=== PATIENT | male | born 1995 | race Two or more races ===

== ENCOUNTER 2022-12-12 01:03 | Inpatient (IN) | payer MEDICAID, OTHER ==
[~2022-12-12] VITALS: Ht 177.8 cm; Wt 81.8 kg
[2022-12-12] MEDS ORDERED: diazePAM 5 MG TAB PO ONE (01:45)
[2022-12-12] MEDS ORDERED: LORazepam 2MG/ML-1ML VIAL IV ONE ×2 (02:00→03:15)
[2022-12-12] MEDS ORDERED: NITROGLYCERIN 0.4 MG SL TAB SL ONE (02:00)
[2022-12-12 02:03] LABS: Basophils # (auto) 0 10 ^3/uL (0-0.2); Basophils % (auto) 0.1 % (0.0-2.0); Eosinophils # (auto) 0 10 ^3/uL (0-0.8); Hematocrit 50.9 % (41.0-53.0); Hemoglobin 17.7 g/dL (13.5-17.5); Lymphocytes # (auto) 1.7 10 ^3/uL (0.4-5.4); Lymphocytes % (auto) 14.8 % (10.0-50.0); Mean Corpuscular Hemoglobin 30.6 pg (28.0-32.0); Mean Corpuscular Hgb Conc. 34.9 g/dL (32.0-36.0); Mean Corpuscular Volume 87.7 fL (80.0-100.0); Monocytes # (auto) 1.2 10 ^3/uL (0-1.3); Monocytes % (auto) 10.2 % (0.0-12.0); Neutrophils # (auto) 8.7 10 ^3/uL (1.6-8.6); Neutrophils % (auto) 74.9 % (37.0-80.0); Red Cell Distribution Width 13.1 % (11.8-14.3); White Blood Cell 11.6 10^3/uL (4.4-10.8)
[2022-12-12 02:05] VITALS: PULSE 100; RESP 13; O2SAT 96
[2022-12-12 02:16] LABS: Albumin 4.7 g/dL (3.4-5.0); Calcium 9.5 mg/dL (8.5-10.1); Potassium 3.6 mmol/L (3.5-5.1)
[2022-12-12 02:18] LABS: BUN/Creatinine Ratio 10.6 (10.0-20.0)
[2022-12-12 02:20] LABS: Bilirubin, Total 0.6 mg/dL (0.2-1.0); Total Protein 8.4 g/dL (6.4-8.2)
[2022-12-12 02:49] LABS: Amphetamine Screen, Urine NEGATIVE (NEGATIVE); Barbiturate Scree,Urine NEGATIVE (NEGATIVE); Benzodiazephine Screen, Urine NEGATIVE (NEGATIVE); Cocaine Screen, Urine POSITIVE (NEGATIVE); Opiate Scree,Urine NEGATIVE (NEGATIVE); Phencyclidine Screen, Urine NEGATIVE (NEGATIVE)
[2022-12-12 02:57] LABS: Cannabinoid Screen, Urine POSITIVE (NEGATIVE)
[2022-12-12] MEDS ORDERED: SODIUM CHLORIDE 0.9% 500 ML IV ONE (03:15)
[2022-12-12 03:16] LABS: Urine Bacteria NONE SEEN /hpf (None Seen); Urine Blood Negative /uL (Negative); Urine Clarity Clear (Clear); Urine Color Yellow (Yellow); Urine Mucus FEW (None Seen); Urine Protein, UAD Negative (Negative); Urine Specific Gravity 1.017 (1.001-1.035); Urine Urobilinogen Normal (Negative); Urine WBC 1 /hpf (0 - 3); Urine pH 5.5 (5.0-8.0)
[2022-12-12 07:45] VITALS: PULSE 63; RESP 15; O2SAT 97
[2022-12-12] MEDS ORDERED: ONDANSETRON HCL 4 MG/2 ML VIAL IV PRN (10:15)
[2022-12-12] MEDS ORDERED: NALOXONE HCL 1MG/ML 2ML SYRINGE IV ONE (10:15)
[2022-12-12] MEDS ORDERED: MORPHINE SULFATE INJ 2 MG/ml SYRG IV PRN (10:45)
[2022-12-12] MEDS: SODIUM CHLORIDE 0.9% 1,000 ML IV SCH ×2 (11:27→19:07)
[2022-12-12] MEDS ORDERED: ACETAMINOPHEN 325 MG TAB PO PRN (15:45)
[2022-12-12 16:01] VITALS: BP 136/73; PULSE 52; PULSE 66; PULSE 86; RESP 17; TEMP 98.2; TEMP 98.3; O2SAT 95
[2022-12-12 17:00] VITALS: BP 135/70; PULSE 63; RESP 20; TEMP 98.2; O2SAT 97
[2022-12-12 20:00] VITALS: BP 138/87; PULSE 51; PULSE 55; RESP 17; TEMP 98.3; O2SAT 98
[2022-12-12 22:00] VITALS: BP 138/87; PULSE 51; RESP 17; TEMP 98.3; O2SAT 96
[2022-12-13] MEDS: SODIUM CHLORIDE 0.9% 1,000 ML IV SCH ×2 (03:42→13:24)
[2022-12-13 05:00] VITALS: BP 129/50; PULSE 58; RESP 18; TEMP 98; O2SAT 95
[2022-12-13 07:13] LABS: Basophils # (auto) 0 10 ^3/uL (0-0.2); Basophils % (auto) 0.4 % (0.0-2.0); Eosinophils # (auto) 0.2 10 ^3/uL (0-0.8); Eosinophils % (auto) 2.2 % (0.0-7.0); Hemoglobin 16.5 g/dL (13.5-17.5); Lymphocytes % (auto) 40.5 % (10.0-50.0); Mean Corpuscular Hemoglobin 30.8 pg (28.0-32.0); Mean Corpuscular Hgb Conc. 35.1 g/dL (32.0-36.0); Mean Corpuscular Volume 87.9 fL (80.0-100.0); Monocytes # (auto) 0.5 10 ^3/uL (0-1.3); Monocytes % (auto) 7.2 % (0.0-12.0); Neutrophils # (auto) 3.7 10 ^3/uL (1.6-8.6); Neutrophils % (auto) 49.7 % (37.0-80.0); Nucleated Red Blood Cells % 0.2 %; Red Blood Cells 5.34 10^6/uL (4.5-5.90); Red Cell Distribution Width 12.7 % (11.8-14.3); White Blood Cell 7.5 10^3/uL (4.4-10.8)
[2022-12-13 07:43] LABS: Potassium 3.8 mmol/L (3.5-5.1)
[2022-12-13 07:48] LABS: Albumin 3.6 g/dL (3.4-5.0); BUN/Creatinine Ratio 10.1 (10.0-20.0); Calcium 8.4 mg/dL (8.5-10.1)
[2022-12-13 07:51] LABS: Bilirubin, Total 0.8 mg/dL (0.2-1.0); Total Protein 6.8 g/dL (6.4-8.2)
[2022-12-13 08:00] VITALS: PULSE 40; PULSE 51; RESP 17; O2SAT 98
[2022-12-13 09:00] VITALS: BP 118/60; PULSE 69; RESP 20; TEMP 98.3; O2SAT 97
[2022-12-13 13:00] VITALS: BP 121/54; PULSE 54; RESP 20; TEMP 98.1; O2SAT 97
== END 2022-12-13 15:57 | disposition left against medical advice (07) | DRG 203 ==
LOC: ER 01:03 → TELE 10:17 → TELE-WESTW 15:58
PROVIDERS: ADMIT Internal Medicine; ATTEND Internal Medicine
DX: R07.89 Other chest pain (principal); D72.829 Elevated white blood cell count, unspecified; F14.10 Cocaine abuse, uncomplicated; F12.10 Cannabis abuse, uncomplicated; Y92.89 Other specified places as the place of occurrence of the external cause; Z53.29 Procedure and treatment not carried out because of patient's decision for other reasons; T40.5X5A Adverse effect of cocaine, initial encounter
CPT/HCPCS: 36415; 70450; 71045; 80053; 80307; 81001; 84484; 85025; 93005; G0378

== ENCOUNTER 2022-12-30 02:12 | Emergency (ER) | payer MEDICAID ==
[~2022-12-30] VITALS: Ht 177.8 cm; Wt 84.5 kg
[2022-12-30 02:35] LABS: Basophils # (auto) 0 10 ^3/uL (0-0.2); Basophils % (auto) 0.5 % (0.0-2.0); Eosinophils # (auto) 0.3 10 ^3/uL (0-0.8); Eosinophils % (auto) 4.3 % (0.0-7.0); Lymphocytes # (auto) 3.2 10 ^3/uL (0.4-5.4); Lymphocytes % (auto) 42.3 % (10.0-50.0); Mean Corpuscular Hemoglobin 30.8 pg (28.0-32.0); Mean Corpuscular Hgb Conc. 35.4 g/dL (32.0-36.0); Mean Corpuscular Volume 87.3 fL (80.0-100.0); Monocytes # (auto) 0.5 10 ^3/uL (0-1.3); Monocytes % (auto) 7.2 % (0.0-12.0); Neutrophils # (auto) 3.4 10 ^3/uL (1.6-8.6); Neutrophils % (auto) 45.7 % (37.0-80.0); Nucleated Red Blood Cells % 0.9 %; Red Cell Distribution Width 12.9 % (11.8-14.3); White Blood Cell 7.4 10^3/uL (4.4-10.8)
[2022-12-30 02:54] LABS: Potassium 3.9 mmol/L (3.5-5.1)
[2022-12-30 02:58] LABS: BUN/Creatinine Ratio 14.4 (10.0-20.0); Bilirubin, Total 0.5 mg/dL (0.2-1.0); Total Protein 7.5 g/dL (6.4-8.2)
[2022-12-30 03:35] VITALS: PULSE 52; RESP 16; TEMP 97.8; O2SAT 99
[2022-12-30 05:30] VITALS: BP 136/88; PULSE 46; RESP 20; O2SAT 99
== END 2022-12-30 05:37 | disposition home or self-care (01) ==
LOC: ER 02:13
DX: I20.9 Angina pectoris, unspecified (principal); R07.89 Other chest pain; R07.81 Pleurodynia; F12.10 Cannabis abuse, uncomplicated; F14.10 Cocaine abuse, uncomplicated; F17.210 Nicotine dependence, cigarettes, uncomplicated
CPT/HCPCS: 36415; 71045; 80053; 84484; 85025; 93005